=== PATIENT | male | born 1950 | race Caucasian/White ===

== ENCOUNTER 2019-01-06 18:56 | Emergency (ER) | payer MEDICARE, BC ==
--- NOTE | 2019-01-06 19:33 | ED ---
Skin Complaint - HPI Summary HPI Summary: The pt presents a week s/p hip surgery having noticed a large amount of blood draining from the wound. He noticed this while driving. - History of Current Complaint Chief Complaint: EDGeneral Time Seen by Provider: 01/06/19 19:01 Stated Complaint: STITCHES REMOVED OPENED BACK UP PER PT Hx Obtained From: Patient Onset/Duration: Started Minutes Ago - 20-30, Resolved Skin Exposure Onset/Duration: Days Ago - 10: total hip replacement surgery Timing: Lasting Minutes Onset Severity: Moderate Current Severity: None Pain Intensity: 0 Pain Scale Used: 0-10 Numeric Skin Location: Leg - L hip Aggravating Symptom(s): Other: - getting in and out of a car all day Alleviating Symptom(s): Nothing Associated Signs & Symptoms: Negative - fever, chills, SOB, headaches, CP, and abnormal discharge. 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 Infectious Disease History: No Infectious Disease History: Denies: Traveled Outside the [place] in Last 30 Days - Family History Known Family History: Positive: Cardiac Disease, Other - [place] - Social History Occupation: Retired Lives: With Family Alcohol Use: None Hx Substance Use: No Substance Use Type: Reports: None Hx Tobacco Use: No Smoking Status (MU): Never Smoked Tobacco Review of Systems Negative: Fever, Chills Negative: Chest Pain Negative: Shortness Of Breath Skin: Negative - abnormal drainage , Other - L hip surgical scar with dried blood in the steri stripes Negative: Headache All Other Systems Reviewed And Are Negative: Yes Physical Exam - Summary Physical Exam Summary: Appearance: Well-appearing, Well-nourished, lying in bed comfortable Skin: Surgical wound that is steri stripped overlying the L hip, clean and dry The steri strpies superiorly are saturated with blood, no bleeding, no palpable fluid present Eyes: sclera anicteric, no conjunctival pallor ENT: mucous membranes moist Neck: deferred Respiratory: No signs of respiratory distress Cardiovascular: Appears well perfused, pulses are nml Abdomen: deferred Musculoskeletal: Moving all 4 extremities without obvious discomfort Neurological: Awake and alert, mentation is normal, speech is fluent and appropriate Psychiatric: affect is normal, does not appear anxious or depressed Triage Information Reviewed: Yes Vital Signs On Initial Exam: Initial Vitals Temp Pulse Resp BP Pulse Ox 99.2 F 89 18 140/87 100 01/06/19 18:57 01/06/19 18:57 01/06/19 18:57 01/06/19 18:57 01/06/19 18:57 Vital Signs Reviewed: Yes Diagnostics - Vital Signs Vital Signs Temp Pulse Resp BP Pulse Ox 01/06/19 18:57 99.2 F 89 18 140/87 100 - Laboratory Lab Statement: Any lab studies that have been ordered have been reviewed, and results considered in the medical decision making process. Course/Dx - Course Course Of Treatment: This pt is a 68 Y/O M presenting to [facility] accompanied by his with a CC of bleeding from a surgical wound 20 to 30 minutes [employer]. He states that he was at [facility] for a L hip transplant on 12/27/18. His PE found that he has a Surgical wound that is steri stripped overlying the L hip, clean and dry. The steristrpies superiorly are satrudated with blood, no bleeding, no palpable fluid present. He will be discharged home aftedr the most saturated steri stripes are replaced. He was Dx with a wound hematoma. - Diagnoses Provider Diagnoses: Wound hematoma Discharge ED - Sign-Out/Discharge Documenting (check all that apply): Patient Departure - discharge Patient Received Moderate/Deep Sedation with Procedure: No - Discharge Plan Condition: Good Disposition: HOME Patient Education Materials: Hematoma (ED) Referrals: No Primary Care Phys,NOPCP [Primary Care Provider] - Additional Instructions: It looks like a hematoma that formed since your surgery found its way out tonight. As there is no apparent ongoing bleeding, the treatment is just to continue your wound care. Usually this is a one time, self limited thing. There is no sign of a wound infection, and what happened tonight should not increase the risk. In terms of followup, routine care per your surgeon. - Billing Disposition and Condition Condition: GOOD Disposition: Home - Attestation Statements Document Initiated by Abhijit: Yes Documenting Scribe: Angus Riggins Provider For Whom Abhijit is Documenting (Include Credential): Geovanny Mederos MD Scribe Attestation: Angus Garcia, scribed for Geovanny Mederos MD on 01/07/19 at 0632. Scribe Documentation Reviewed: Yes Provider Attestation: The documentation as recorded by the Angus gtz accurately reflects the service I personally performed and the decisions made by meGeovanny MD Status of Scribe Document: Viewed
[2019-01-06 20:16] VITALS: BP 126/67
== END 2019-01-06 20:16 | disposition home or self-care (01) ==
LOC: ED 18:56
DX: L76.22 Postprocedural hemorrhage of skin and subcutaneous tissue following other procedure (principal); Z79.82 Long term (current) use of aspirin; Z79.899 Other long term (current) drug therapy
CPT/HCPCS: 99282

== ENCOUNTER 2019-02-22 17:05 | Emergency (ER) | payer MEDICARE, BC ==
[2019-02-22 19:36] LABS: Urine Appearance Clear; Urine Bacteria Absent (Absent); Urine Bilirubin Negative (Negative); Urine Blood Negative (Negative); Urine Color Yellow; Urine Glucose Negative (Negative); Urine Ketones Negative (Negative); Urine Nitrite Negative (Negative); Urine Protein 1+(30 mg/dL) (Negative); Urine Red Blood Cell 1+(3-5/hpf) (Absent); Urine Specific Gravity 1.017 (1.010-1.030); Urine Urobilinogen Negative (Negative); Urine White Blood Cell 2+(11-20/hpf) (Absent)
--- NOTE | 2019-02-22 19:48 | ED ---
GI/ HPI - HPI Summary HPI Summary: 68 year old M referred to [facility] by Urgent Care in [place] complains of fever, chills, pain with urination, incontinence, decreased appetite since Wednesday. Patient states he went to Urgent Care in [place] yesterday 02/21/19 where he was diagnosed with bladder infection. No blood work done yesterday 02/21/19. Patient states he was given prescription cipro 500 mg BID. Patient states he had fever 103F this afternoon for which he took Tylenol at 16:30 today 02/22/19. Patient states he called Urgent Care in [place] who recommended patient to go to ED if symptoms do not improve. No nausea/vomiting. The patient rates the pain 3/10 in severity. Symptoms aggravated by nothing. Symptoms alleviated by Tylenol, last taken at 16:30 today 02/22/19. Hx prostitis 30 years ago. No other bladder hx. - History of Current Complaint Chief Complaint: EDUrogenitalProblems Time Seen by Provider: 02/22/19 19:38 Stated Complaint: BLADDER INF/FEVER PER PT Hx Obtained From: Patient Onset/Duration: Started Days Ago - 2, Still Present Timing: Constant Severity: Mild Current Severity: Mild Pain Intensity: 3 Associated Signs and Symptoms: Positive: Negative - nausea/vomiting Aggravating Factor(s): Nothing Alleviating Factor(s): Medication - Tylenol, last taken 16:30 today 02/22/19 - Allergy/Home Medications Allergies/Adverse Reactions: Allergies Allergy/AdvReac Type Severity Reaction Status Date / Time No Known Allergies Allergy Verified 01/06/19 18:58 Home Medications: Home Medications Acetaminophen TAB* [Tylenol TAB*] 650 mg PO Q6H PRN 02/22/19 [History Confirmed 02/22/19] Ciprofloxacin TAB* [Cipro 500 MG TAB*] 500 mg PO BID 02/22/19 [History Confirmed 02/22/19] PMH/Surg Hx/FS Hx/Imm Hx Endocrine/Hematology History: Denies: Hx Diabetes Cardiovascular History: Denies: Hx Hypertension Respiratory History: Denies: Hx Asthma History: Reports: Other Problems/Disorders - prostitis 30 years ago Sensory History: Reports: Hx Contacts or Glasses Opthamlomology History: Reports: Hx Contacts or Glasses - Surgical History Surgery Procedure, Year, and Place: Total L hip replacement 12/27/18 Infectious Disease History: No Infectious Disease History: Denies: Traveled Outside the [place] in Last 30 Days - Family History Known Family History: Positive: Cardiac Disease, Other - [place] - Social History Alcohol Use: None Hx Substance Use: No Substance Use Type: Reports: None Hx Tobacco Use: No Smoking Status (MU): Never Smoked Tobacco Review of Systems Positive: Fever, Chills Positive: Other - decreased appetite. Negative: Vomiting, Nausea Positive: incontinence, pain All Other Systems Reviewed And Are Negative: Yes Physical Exam - Summary Physical Exam Summary: Appearance: Well-appearing, Well-nourished, lying in bed comfortably Skin: Warm, dry, no obvious rash Eyes: sclera anicteric, no conjunctival pallor ENT: mucous membranes moist, pharynx appears normal Neck: Supple, nontender Respiratory: Clear to auscultation, no signs of respiratory distress Cardiovascular: Normal S1, S2. No murmurs. Normal distal pulses in tibial and radial bilaterally. Abdomen: Soft, nontender, normal active bowel sounds present Musculoskeletal: Normal, Strength/ROM Intact Neurological: A&Ox3, awake and alert, mentation is normal, speech is fluent and appropriate Psychiatric: affect is normal, does not appear anxious or depressed Triage Information Reviewed: Yes Vital Signs On Initial Exam: Initial Vitals Temp Pulse Resp BP Pulse Ox 97.8 F 95 18 119/65 97 02/22/19 17:13 02/22/19 17:13 02/22/19 17:13 02/22/19 17:13 02/22/19 17:13 Vital Signs Reviewed: Yes Procedures - Sedation Patient Received Moderate/Deep Sedation with Procedure: No Diagnostics - Vital Signs Vital Signs Temp Pulse Resp BP Pulse Ox 02/22/19 19:15 98.2 F 88 16 122/71 97 02/22/19 17:13 97.8 F 95 18 119/65 97 - Laboratory Lab Results: Lab Results 02/22/19 Range/Units 18:57 Urine Color Yellow Urine Appearance Clear Urine pH 6.0 (5-9) Ur Specific Al[place] 1.017 (1.010-1.030) Urine Protein 1+(30 mg/dl) A (Negative) Urine Ketones Negative (Negative) Urine Blood Negative (Negative) Urine Nitrate Negative (Negative) Urine Bilirubin Negative (Negative) Urine Urobilinogen Negative (Negative) Ur Leukocyte Esterase Negative (Negative) Urine WBC (Auto) 2+(11-20/hpf) A (Absent) Urine RBC (Auto) 1+(3-5/hpf) A (Absent) Urine Bacteria Absent (Absent) Urine Glucose Negative (Negative) Urine Ascorbic Acid * A (Negative) Result Diagrams: 02/22/19 19:32 02/22/19 19:32 Lab Statement: Any lab studies that have been ordered have been reviewed, and results considered in the medical decision making process. GIGU Course/Dx - Course Course Of Treatment: 68 y/o M complains of fever, chills, pain with urination, incontinence, decreased appetite since Wednesday02/20/19. Dx bladder infection yesterday 02/21/19. Patient presents to ED today because his symptoms are not improving. Physical exam findings: unremarkable. Bloodwork results with no significant abnormalities except for RBC 4.10, Hgb 12.0, Hct 36, MPV 7.2, absolute lymphs 0.4, INR 1.24, glucose 116, troponin 0.05, and CRP 245.88. Urinalysis results with no significant abnormalities except for protein 1+, WBC 2+, RBC 1+, and ascorbic acid. We discussed patient care with Dr. Hu, hospitalist, who recommends d/c. Patient will be discharged home with instructions to continue taking his prescription for Cipro 500 mg BID. He was instructed to follow up with his primary care provider. Patient was instructed to return to Emergency Department for new or worsening symptoms. Patient understands and is agreeable to this plan. - Diagnoses Provider Diagnoses: Urinary tract infection - Physician Notifications Discussed Care Of Patient With: Shan Hu Time Discussed With Above Provider: 21:20 Instructed by Provider To: Other - Dr. Hu, hospitalist, recommends d/c. Discharge ED - Sign-Out/Discharge Documenting (check all that apply): Patient Departure - Discharge - Discharge Plan Condition: Good Disposition: HOME Patient Education Materials: Urinary Tract Infection in Men (ED) Referrals: No Primary Care Phys,NOPCP [Primary Care Provider] - Additional Instructions: I will have one of our staff check on the urine culture they took in [place] and we will contact you if a change in your treatment is needed. For now, I think cipro is an appropriate antibiotic and I would not change it after only a days worth of antibiotic. - Billing Disposition and Condition Condition: GOOD Disposition: Home - Attestation Statements Document Initiated by Nasiribe: Yes Documenting Scribe: Naty Grajeda Provider For Whom Abhijit is Documenting (Include Credential): Geovanny Mederos MD Scribe Attestation: INaty, scribed for Geovanny Mederos MD on 02/23/19 at 0534. Scribe Documentation Reviewed: Yes Provider Attestation: The documentation as recorded by the nasiribeNaty accurately reflects the service I personally performed and the decisions made by me, Geovanny Mederos MD Status of Scribe Document: Viewed
[2019-02-22 19:54] LABS: ABS Lymphocytes 0.4 10^3/ul (1.0-4.8); ABS Monocytes 0.3 10^3/ul (0-0.8); ABS Neutrophils 6.2 10^3/ul (1.5-7.7); Hematocrit 36 % (42-52); Lymphocyte % 5.9 %; Mean Corpuscular HGB Conc 34 g/dL (31-36); Mean Corpuscular Hemoglobin 29 pg (27-31); Mean Corpuscular Volume 87 fL (80-94); Mean Platelet Volume 7.2 fL (7.4-10.4); Nucleated Red Blood Cells % 0.1; Platelet Count 172 10^3/uL (150-450); Red Cell Distribution Width 15 % (10-15)
[2019-02-22 20:01] LABS: INR 1.24 (0.82-1.09)
[2019-02-22 20:13] LABS: Albumin 4.1 g/dL (3.2-5.2); Albumin/Globulin Ratio 1.7 (1-3); BUN/Creatinine Ratio 16.8 (8-20); C Reactive Protein 245.88 mg/L (<8.01); Calcium 8.9 mg/dL (8.6-10.3); EGFR Non-African American 79.3 (>60); Globulin 2.4 g/dL (2-4); Total Bilirubin 0.6 mg/dL (0.2-1.0); Total Protein 6.5 g/dL (6.4-8.9)
[2019-02-22 20:15] LABS: Troponin I 0.05 ng/mL (<0.04)
[2019-02-22 21:44] VITALS: BP 132/72
--- NOTE | 2019-02-23 11:04 | ED ---
Imaging and Labs Follow Up Follow Up Type: Labs/Cultures Labs/Culture Result: Called [facility] at 11:05 AM Discussed results over the phone with RN RN states cultures and sensitivities from 2 days ago are not yet back, however patient was treated with Cipro She states if this will not cover, they will call patient back to change medications Pt continues on Cipro at this time Patient Communication/Plan: Pt continues on cipro Provider Diagnoses: Urinary tract infection
== END 2019-02-22 21:43 | disposition home or self-care (01) ==
LOC: ED 17:05
DX: N39.0 Urinary tract infection, site not specified (principal); Z96.642 Presence of left artificial hip joint
CPT/HCPCS: 36415; 80053; 81003; 81015; 83605; 84484; 85025; 85610; 86140; 87040; 87086; 99283